=== PATIENT | female | born 1985 | race Caucasian/White ===

== ENCOUNTER 2017-07-02 07:39 | Inpatient (IN) ==
--- OUTSIDE RECORDS SUMMARY | 2017-07-02 07:44 | External Medical Summary | Continuity of Care Document ---
:1985 Author Organization [facility] Address [address] [place], [place] [id number] Phone Allergies, Adverse Reactions, Alerts Substance Reaction Severity Status No Known Drug Allergies Unknown Active Medications Medication Instructions Dosage Effective Dates Status Comments (start - stop) Keflex 500 mg take 1 capsule by 500 MG - Active capsule ORAL route 4 times every day Vitamin take 1 tablet by Not Available - Active 27 mg iron-0.8 mg oral route every tablet day iron 325 mg (65 mg take 1 tablet by 325 MG - Active iron) tablet ORAL route every day Problems Condition Effective Dates (start - stop) Clinical Status Pap Smear Screening, Cervix - Encounter for suprvsn of normal - , first trimester 9 weeks gestation of - Encounter for suprvsn of normal - , second trimester 21 weeks gestation of - Suprvsn of preg w insufficient antenat - care, first trimester Encounter for screening of - mother Less than 8 weeks gestation of - Active Procedures Procedure Date Unknown Results Test Name Date and Time Measure Units Reference Range Abnormal Flag Comments Unknown Advance Directives Directive Yes / No Effective Date File Name Unknown Encounters Encounter Practice Location Reason(s) Diagnoses Date Provider Care Team Description For Visit Members [facility] Saw Referring In [facility] 4-201 [place]. 700 Provider: Health ANTONINO, [address] [place] Serafin Mcgrath [address], [place] [address] [id number], [place], [facility] 120, [id number] Supa, tel:+ , [place]. [place], tel: [phone]. [phone] tel:[phone] [facility] Encounter for Mar-0 Saw Referring In Womens suprvsn of normal [place]. 700 Provider: Health PA, , second [id number] weeks Center Serafin Mcgrath, 1522, gestation of [place] Suresh, 120, Medical [place], Supa, [place] [id number], [place], [place] 120, [place] [id number] Supa, tel: , [place]. [place], tel: [phone]. [phone] tel:[phone] [facility] Suprvsn of preg w Aug-0 Saw Referring In Womens Ultrasound insufficient [place]. 700 Provider: Health ANTONINO, [facility], [address] first Center Serafin Mcgrath, 1522, trimesterEncounte [place] S[place]h, r for 120, Medical [place], screening of Supa [place] [id number], motherLess than 8 [place], [place] 120, [place] weeks gestation [id number] Supa, tel: of , [place]. [place], tel: [phone]. [phone] tel:[phone] [facility] Pap Smear Feb- Saw Referring In Womens Screening, [place]. 700 Provider: Health ANTONINO, CervixEncounter [address] for suprvsn of Center Bryant Alcides, 1522, normal , [place] Suresh, first trimester9 120, Medical [place], weeks gestation [address] [id number], of [place], [place] 120, [place] [id number] Supa, tel: , [place]. [place], tel: [phone]. [phone] tel:[phone] [facility] Oct-0 Saw Referring In Womens 5-201 [place]. 700 Provider: Health ANTONINO, [address] Center [place], 700 1522, , [place] May, 120, Center Supa [place], [place] 120, [id number], Supa [place] [id number] [place], tel: , [place]. [phone]. [id number] tel: tel: [phone] [facility] Saw Referring In Womens 5-201 [place]. 700 Provider: Deshawn MUÑIZ, [address] Center [place], 700 1522, [place] Suresh Medical [place], 120, Center Supa [place], [facility] 120, [id number], Supa [place], [id number] [place], tel: , . [phone]. [id number] tel: tel: [phone] Family History Family Member Diagnosis Age At Onset No family history of Breast Cancer No family history of Thyroid Disorder Mother Stroke No family history of Lung Disease No family history of Osteoporosis No family history of Diabetes No family history of Epilepsy No family history of Uterine Cancer No family history of Colon Cancer Paternal Grandfather Cardiovascular Disease No family history of Kidney Problems Mother Drug Dependency No family history of Ovarian Cancer No family history of Hypertension Immunizations Vaccine Date Status Comments Unknown Payers Payer name Insurance type Covered green party ID Authorization(s) [employer] [place] - Medicaid MC [id number] Social History Type Description Quantity Date Captured Unknown Vital Signs Date / Height Weight BMI Pulse Blood Temperature Respiratory Body Head BMI Time: Rate Pressure Rate Surface Circumference percentile Area Unknown Chief Complaint And Reason For Visit Unknown Chief Complaint And Reason For Visit Reason For Referral Reason For Referral Unknown Plan Of Care Date Type Action Status Goal Tobacco cessation counseling completed Future Order: Radiology Order Complete OB Ultrasound > 14 Ordered Weeks (24345) Date Type Problem Goal Intervention Status Start Date Unknown. History Of Present Illness Encounter Date Complaint History Of Present Illness This patient has no known history of present illness Functional Status Encounter Date Functional Assessment Cognitive Assessment Unknown Medications Administered Medication Instructions Dosage Effective Dates (start - stop) Status Comments Drug Treatment Unknown Instructions Date Instruction Additional Information HIV and other routine tests risk factors identified by history anticipated course of care nutrition and weight gain counseling, special diet toxoplasmosis precautions (cats / raw meat) sexual activity exercise indications for ultrasound influenza vaccine environmental / work hazards travel tobacco (ask, advise, assess, assist and arrange) use of any medications (including supplements, vitamins, herbs, OTC drugs) smoking counseling seat belt use childbirth classes / hospital facilities hospital registration genetic testing new ob handbook Zika virus assessment & precautions new ob handbook HIV and other routine tests risk factors identified by history anticipated course of care nutrition and weight gain counseling, special diet toxoplasmosis precautions (cats / raw meat) sexual activity exercise indications for ultrasound influenza vaccine environmental / work hazards travel tobacco (ask, advise, assess, assist and arrange) alcohol illicit / recreational drugs use of any medications (including supplements, vitamins, herbs, OTC drugs) smoking counseling domestic violence seat belt use childbirth classes / hospital facilities hospital registration genetic testing
[2017-07-02] MEDS ORDERED: CEFAZOLIN PREMIX (MC ONLY) 2 GM/50 ML BAG IV ONE (08:05)
[2017-07-02] MEDS ORDERED: FAMOTIDINE PB 20 MG/50 ML BAG IV ONE (08:05)
[2017-07-02] MEDS ORDERED: CITRIC ACID/SODIUM CITRATE 30ml PO ONE (08:05)
[2017-07-02] MEDS: LR 1,000 ML IV SCH ×3 (08:20→18:12)
[2017-07-02 08:27] VITALS: BMI 28.3
[2017-07-02] MEDS ORDERED: ONDANSETRON 4 MG/2 ML INJECTION IVP PRN ×2 (08:31→11:05)
[2017-07-02] MEDS ORDERED: DiphenhydrAMINE 50 MG/ML INJECTION IVP PRN (08:31)
[2017-07-02] MEDS ORDERED: NALOXONE 2 MG/2 ML INJECTION PFS IVP PRN (08:31)
--- NOTE | 2017-07-02 08:31 | Anesthesia Preoperative Report ---
Anesthesia Preoperative Record - Date and Time Date: 07/02/17 Preoperative Diagnosis: Proposed Procedure: Repeat NPO Since Date: 07/02/17 NPO Since Time: 00:00 Allergies/Adverse Reactions: Allergies Allergy/AdvReac Type Severity Reaction Status Date / Time No Known Allergies Allergy Unknown Verified 05/12/17 12:44 - Vital Signs Vital Signs: Temperature 98.1 F 07/02/17 08:08 Pulse Rate 90 07/02/17 08:08 Respiratory Rate 20 07/02/17 08:08 Blood Pressure 145/90 H 07/02/17 08:08 Height and Weight: Height 5 ft Weight 65.771 kg Body Mass Index 28.3 - Medications Inpatient Medications: Current Medications Cefazolin Sodium/Dextrose (Kefzol Premix ( Only)) 2 gm in 50 mls @ 100 mls/ hr IV PREOP ONE Stop: 07/02/17 08:34 Famotidine/Sodium Chloride (Pepcid Premix) 20 mg in 50 mls @ 100 mls/hr IV PREOP ONE Stop: 07/02/17 08:34 Last Admin: 07/02/17 08:20 Dose: 100 mls/hr Lactated Ringer's (Lactated Ringers) 1,000 mls @ 999 mls/hr IV .Q1H1M WILD Last Admin: 07/02/17 08:20 Dose: 999 mls/hr Is Patient on Beta Mervin?: No - Medical History Respiratory: Reports: Other (fmr smoker) Cardiovascular: DENIES: Abnormal EKG, Angina, Arrhythmia, Congestive Heart Failure, Coronary Artery Disease, Heart Murmur, Hypertension, Hypotension, High Cholesterol, Myocardial Infarction, Rheumatic Fever, Valvular Heart Disease, Other Gastrointestional: Reports: Gastroesophageal Reflux Disease (with ) Neuro/Musculoskeletal: Denies: HX.MS.OSAR, Back Problems, Cerebrovascular Accident, Depression, Headaches, Loss of Consciousness, Muscle Weakness, Neuromuscular Disorder, Paralysis, Paresthesia, Syncope, Seizures, Other Renal/Endocrine: DENIES: Diabetes Mellitus Type 1, Diabetes Mellitus Type 2, Renal Failure, Dialysis, Thyroid Disease, Weight Loss, Weight Gain, Other Other History: Reports: Now (edc 07/19/17) - Surgical History GI Surgery/Treatments: Reports: Appendectomy, Cholecystectomy Reproductive Surgery/Treatment: Reports: Section (i didn't dilate) Anesthesia Reactions: None Hx Family Anesthesia Reaction: No History of Motion Sickness: No - Social History Smoking Status: Current every day smoker (reports she quit when she found out about ) Packs per day: 0.5 Pack-years: 3 Substance Use Type: does not use (denies) Alcohol Intake Frequency: does not drink (denies) - Pertinent Findings EKG: Sinus Tachycardia - Physical Exam Respiratory Exam: Present: lungs clear, bilateral breath sounds equal Cardiovascular Exam: Present: regular rate and rhythm, no murmur - Airway Assessment Mallampati Score: II TMD: 3 Fingerbreadths Neck Extension: fair Teeth: poor dentation (several chipped/missing) Overall Assessment: may be difficult intubation - ASA ASA Score: 2, E - Plan Anesthesia: Regional Block Regional/Trunk Block: Spinal - Discussion Discussion: Discussed risks/options/alternatives of anesthesia and questions answered. Patient consents. Nursing pain assessment noted. Present for Discussion: other (none) Attestation Statement: Prior to the delivery of any anesthetic medication, I examined the patient, developed the plan, obtained the patient's consent and discussed the risk and benefits of the procedure with the patient/guardian. - Additional Information Seen by Anesthesia: Yes
[2017-07-02] MEDS ORDERED: FentaNYL 100 MCG/2 ML INJECTION ONE (08:37)
[2017-07-02] MEDS ORDERED: MORPHINE SULFATE PF 5mg/10ml INJ (Duramorph) ONE (08:37)
[2017-07-02] MEDS ORDERED: EPHEDRINE 50mg/ml INJECTION ONE (09:08)
[2017-07-02] MEDS ORDERED: ONDANSETRON 4 MG/2 ML INJECTION ONE (09:08)
[2017-07-02] MEDS ORDERED: OXYTOCIN BOLUS BAG 30 UNIT/500 ML ML IV SCH (09:15)
[2017-07-02] MEDS ORDERED: SIMETHICONE 80 MG CHEWABLE TABLET PO PRN (11:05)
[2017-07-02] MEDS ORDERED: DiphenhydrAMINE 25 MG CAPSULE PO PRN (11:05)
[2017-07-02] MEDS ORDERED: CALCIUM CARBONATE Chewable 500mg TABLET PO PRN (11:05)
[2017-07-02] MEDS ORDERED: HYDROCORTISONE 2.5% CREAM 30gm RECTALLY PRN (11:05)
[2017-07-02] MEDS ORDERED: OXYTOCIN DRIP 30 UNIT/500 ML ML IV SCH (11:05)
[2017-07-02] MEDS ORDERED: METOCLOPRAMIDE 10mg/2ml INJECTION IVP PRN (11:05)
[2017-07-02] MEDS ORDERED: SALINE FLUSH 10ml SYRINGE IV PRN (11:05)
[2017-07-02] MEDS ORDERED: ACETAMINOPHEN 500 MG TABLET PO PRN (11:05)
[2017-07-02] MEDS: D5LR 1,000 ML IV SCH ×2 (12:11→22:39)
[2017-07-02] MEDS: IBUPROFEN 800 MG TABLET PO PRN ×2 (13:14→21:32)
[2017-07-02] MEDS: HYDROCODONE/APAP 5mg/325mg TABLET PO PRN ×2 (13:15→21:31)
[2017-07-02] MEDS: SIMETHICONE 80 MG CHEWABLE TABLET PO SCH ×2 (17:07→21:32)
--- NOTE | 2017-07-02 17:09 | Operative Note ---
DATE OF SURGERY: 07/02/2017 PREOPERATIVE DIAGNOSES 1. 31-year-old white female, G3, P1 at 37.4 weeks gestational age. 2. Previous x 1. 3. Smoker. 4. Three visits. 5. Spontaneous rupture of membranes. POSTOPERATIVE DIAGNOSIS Female infant, Apgars, 2902 g (6 pounds 6.4 ounces, ([place]). PROCEDURE: Repeat low transverse section. ANESTHESIA: Spinal by Von Perez CRNA SURGEON: Guzman Spring MD TOOL AND DIE MAKER/DESIGNER: Macario Duarte, surgical services assistant. COMPLICATIONS: None. INDICATIONS This is a patient of mine who has only made it to three visits. She was scheduled for a repeat on 07/14/2017 but came in this morning complaining of leakage of fluid all night. AmniSure was performed and confirmed rupture of membranes so we did the repeat today. DESCRIPTION OF PROCEDURE After adequate spinal anesthesia the patient was prepped and draped in the left lateral decubitus position. A Pfannenstiel skin incision was made in ellipsoid fashion, excising the old scar. This was carried down to the fascia which was incised transversely with the [place] scissors. Rectus fascia was bluntly and sharply dissected off the rectus muscles. The muscles were divided. The peritoneum was isolated, entered and extended cephalad and caudad. The bladder blade was inserted and the bladder was dissected off the lower uterine segment. There was a thin lower uterine segment so I went above it to thicker muscle and made a transverse incision. Amniotic fluid was clear. Infant was delivered from the vertex position without difficulty. It was bulb suctioned after delivery of the head and then again after delivery of the body. Cord was doubly clamped and cut and the was received by Dr. Membreno of Pediatrics. The placenta was then removed manually from the anterior portion of the uterus and was sent to Pathology. The uterus was externalized and cleansed with moist lap sponges and then closed with 0-Monocryl in a running, locking fashion. Hemostasis was confirmed and then the bladder flap was replaced using 3-0 Vicryl. Then we cleansed the posterior cul-de-sac and the uterus was returned to the abdominal cavity. Then the peritoneum was closed with 2-0 Vicryl in a running, nonlocking fashion. Fascia was closed using 0-Vicryl in a running, nonlocking fashion bilaterally from the lateral aspects medially. Skin was closed with wide viktor in a serial fashion. Then three horizontal mattress sutures of 3-0 Monocryl were placed to keep the skin edges everted. The patient went to recovery room in stable condition. LEONIDES
--- NOTE | 2017-07-02 17:26 | Progress Note ---
OB PP Progress Note Free Text - Date Date: 07/02/17 - Progress Note Progress Note: vss af doing ok hgb reviewed q&a-krb
[2017-07-03] MEDS: HYDROCODONE/APAP 5mg/325mg TABLET PO PRN ×3 (01:44→19:38)
[2017-07-03] MEDS: SIMETHICONE 80 MG CHEWABLE TABLET PO SCH ×5 (01:44→21:10)
--- NOTE | 2017-07-03 08:17 | Progress Note ---
OB PP Progress Note Free Text - Date Date: 07/03/17 - Progress Note Progress Note: vss af incinsion c/d/i doing ok asks about dc today - needs to stay to tomorrow for unknown gbs q&a
[2017-07-03] MEDS: DOCUSATE CALCIUM 240 MG CAPSULE PO SCH (10:09)
[2017-07-03] MEDS: IBUPROFEN 800 MG TABLET PO PRN (13:00)
[2017-07-04 00:36] VITALS: RESP 16
[2017-07-04] MEDS: HYDROCODONE/APAP 5mg/325mg TABLET PO PRN (07:14)
[2017-07-04 07:38] VITALS: O2SAT 100
[2017-07-04] MEDS: DOCUSATE CALCIUM 240 MG CAPSULE PO SCH (10:33)
[2017-07-04] MEDS: SIMETHICONE 80 MG CHEWABLE TABLET PO SCH (10:33)
--- NOTE | 2017-07-04 11:54 | OB/GYN Progress Note ---
OB-Progress Note Free Text - Date Date: 07/04/17 - Progress Note Progress Note: vss af no c/o incision c/d/i dc instructions reviewed q&a f/u Friday for staple removal
[2017-07-04 13:10] VITALS: BP 126/75; PULSE 83; TEMP 97.8
== END 2017-07-04 12:30 | disposition home or self-care (01) | DRG 766 ==
LOC: OBOBS 07:39 → MC 07:40
PROVIDERS: ADMIT Obstetrics & Gynecology; ATTEND Obstetrics & Gynecology